=== PATIENT | female | born 1985 | race Caucasian/White ===

== ENCOUNTER 2017-05-31 12:36 | Inpatient (IN) | payer BC, OTHER ==
[~2017-05-31] VITALS: Ht 162.6 cm; Wt 145.5 kg
[~2017-05-31 12:36] MED LIST: IBUP-1222 PO; IRON PO; OXYC-302 PO; PREN1TAB60 PO
[2017-05-31] MEDS ORDERED: OXYTOCIN 30U/ 0.9% NaCL 500ML 500 ML IV ONE (20:36)
[2017-05-31] MEDS: D5%-LACTATED RINGERS 1,000 ML IV SCH (20:36)
[2017-05-31] MEDS: LACTATED RINGERS 1,000 ML IV SCH (20:40)
[2017-05-31] MEDS ORDERED: NEWBORN KIT ONE (20:57)
[2017-05-31] MEDS ORDERED: MISOPROSTOL 25 MCG TABLET ONE (20:57)
[2017-05-31] MEDS ORDERED: LIDOCAINE 1%, 20ML ONE (20:57)
[2017-05-31] MEDS ORDERED: OXYTOCIN 30U/ 0.9% NaCL 500ML 500 ML ONE (20:57)
[2017-05-31] MEDS ORDERED: MISOPROSTOL 200 MCG TABLET ONE (20:57)
[2017-05-31] MEDS ORDERED: FENTANYL PF 100 MCG/2ML IVPush PRN (21:00)
[2017-05-31] MEDS ORDERED: TERBUTALINE 1 MG/ML, 1ML IVPush PRN (21:00)
[2017-05-31] MEDS ORDERED: ALUMINUM/MAG/SIMETHICONE 30 ML UDC PO PRN (21:00)
[2017-05-31] MEDS ORDERED: SODIUM CITRATE/CITRIC ACID 30 ML UDC PO PRN (21:00)
[2017-05-31] MEDS ORDERED: MISOPROSTOL 25 MCG TABLET VG PRN (21:00)
[2017-05-31] MEDS ORDERED: FENTANYL PF 100 MCG/2ML IV PRN (21:00)
[2017-05-31] MEDS ORDERED: METOCLOPRAMIDE 5 MG/ML, 2ML IVPush PRN (21:00)
[2017-05-31] MEDS ORDERED: ONDANSETRON 2MG/ML, 2ML IVPush PRN (21:00)
[2017-05-31] MEDS ORDERED: CALCIUM CARBONATE 500 MG TAB.CHEW PO PRN (21:00)
[2017-05-31 21:03] LABS: BASOPHILS # (AUTO) 0.03 x10^3/uL (0-0.1); BASOPHILS % (AUTO) 0 % (0-1); EOSINOPHILS # (AUTO) 0.09 x10^3/uL (0-0.4); EOSINOPHILS % (AUTO) 1 % (1-7); LYMPHOCYTES # (AUTO) 0.88 x10^3/uL (1-3.4); LYMPHOCYTES % (AUTO) 10 % (22-44); MD NO; MEAN CORPUSCULAR HEMOGLOBIN 28.9 pg (27.0-34.8); MEAN CORPUSCULAR HGB CONC 33.5 g/dL (32.4-35.8); MEAN CORPUSCULAR VOLUME 86.3 fL (80-100); MEAN PLATELET VOLUME 8.2 fL (7.4-10.4); MONOCYTES % (AUTO) 6 % (2-9); NEUTROPHILS # (AUTO) 7.44 x10^3/uL (1.8-6.8); NEUTROPHILS % (AUTO) 83 % (42-75); PLATELET COUNT 261 x10^3/uL (130-400); RED BLOOD COUNT 4.19 x10^6/uL (3.82-5.3); RED CELL DISTRIBUTION WIDTH 15.6 % (9.6-15.2)
[2017-05-31 21:23] VITALS: BP 123/70
[2017-06-01] MEDS ORDERED: MISOPROSTOL 25 MCG TABLET ONE (01:00)
[2017-06-01] MEDS ORDERED: OXYTOCIN 30U/ 0.9% NaCL 500ML 500 ML IV PRN (01:09)
[2017-06-01] MEDS ORDERED: DIPHENHYDRAMINE 25 MG CAPSULE PO PRN (01:30)
[2017-06-01] MEDS: D5%-LACTATED RINGERS 1,000 ML IV SCH ×2 (04:36→12:36)
[2017-06-01] MEDS: LACTATED RINGERS 1,000 ML IV SCH ×2 (04:36→06:13)
[2017-06-01] MEDS ORDERED: LACTATED RINGERS 1,000 ML IV SCH (07:18)
[2017-06-01] MEDS ORDERED: FENTANYL/BUPIV./NS/PF 250 ML EPIDCONT SCH (07:18)
[2017-06-01] MEDS ORDERED: BUPIVACAINE/PF 0.25% ONE (07:20)
[2017-06-01] MEDS ORDERED: BUPIVACAINE 0.25% ONE (07:20)
[2017-06-01] MEDS ORDERED: FENTANYL/BUPIV./NS/PF 250 ML EPIDCONT ONE ×2 (07:20)
[2017-06-01] MEDS ORDERED: LACTATED RINGERS 1,000 ML IVBOLUS PRN (07:30)
[2017-06-01] MEDS ORDERED: NALOXONE 0.4 MG/ML, 1ML IVPush PRN (07:30)
[2017-06-01] MEDS ORDERED: EPHEDRINE 50 MG/ML, 1ML IVPush PRN (07:30)
[2017-06-01] MEDS ORDERED: LIDOCAINE 1%, 20ML ONE (12:01)
[2017-06-01] MEDS ORDERED: MISOPROSTOL 200 MCG TABLET ONE (12:01)
[2017-06-01] MEDS: OXYTOCIN 30U/ 0.9% NaCL 500ML 500 ML IV SCH ×2 (13:07→23:07)
[2017-06-01] MEDS ORDERED: RHOGAM FROM BLOOD BANK 1 NOTE EA IM/IV ONE (13:30)
[2017-06-01] MEDS ORDERED: OXYcodone IR 5MG TABLET PO PRN (13:30)
[2017-06-01] MEDS ORDERED: MAGNESIUM HYDROXIDE 8%, 30ML UDC PO PRN (13:30)
[2017-06-01] MEDS ORDERED: DOCUSATE 100 MG CAPSULE PO PRN (13:30)
[2017-06-01] MEDS ORDERED: OXYcodone/APAP 5/325MG TABLET PO PRN (13:30)
[2017-06-01] MEDS ORDERED: MISOPROSTOL 200 MCG TABLET PR PRN (13:30)
[2017-06-01] MEDS ORDERED: DIPH,PERTUSS(ACELL),TET VAC/PF NC IM-VACC PRN (13:30)
[2017-06-01] MEDS ORDERED: CALCIUM CARBONATE 500 MG TAB.CHEW PO PRN (13:30)
[2017-06-01 16:20] VITALS: BP 134/75
[2017-06-01] MEDS: IBUPROFEN 600 MG TABLET PO PRN ×2 (18:13→23:56)
[2017-06-01 19:30] VITALS: BP 126/79
[2017-06-01] MEDS ORDERED: MEASLES,MUMPS&RUBELLA VACC/PF 0.5 ML SQ-VACC ONE (21:00)
[2017-06-01 21:02] LABS: BASOPHILS # (AUTO) 0.03 x10^3/uL (0-0.1); BASOPHILS % (AUTO) 0 % (0-1); EOSINOPHILS # (AUTO) 0.05 x10^3/uL (0-0.4); EOSINOPHILS % (AUTO) 1 % (1-7); LYMPHOCYTES # (AUTO) 1.05 x10^3/uL (1-3.4); LYMPHOCYTES % (AUTO) 11 % (22-44); MD NO; MEAN CORPUSCULAR HEMOGLOBIN 28.9 pg (27.0-34.8); MEAN CORPUSCULAR HGB CONC 33.3 g/dL (32.4-35.8); MEAN CORPUSCULAR VOLUME 86.8 fL (80-100); MEAN PLATELET VOLUME 8.6 fL (7.4-10.4); MONOCYTES # (AUTO) 0.62 x10^3/uL (0.2-0.8); MONOCYTES % (AUTO) 6 % (2-9); NEUTROPHILS # (AUTO) 7.88 x10^3/uL (1.8-6.8); NEUTROPHILS % (AUTO) 82 % (42-75); PLATELET COUNT 216 x10^3/uL (130-400); RED BLOOD COUNT 3.91 x10^6/uL (3.82-5.3); RED CELL DISTRIBUTION WIDTH 15.8 % (9.6-15.2)
[2017-06-02 00:13] VITALS: BP 121/78
[2017-06-02 04:30] VITALS: BP 138/80
[2017-06-02] MEDS: PRENATAL VIT/IRON/FA 1 EACH TABLET PO SCH (07:51)
[2017-06-02] MEDS: IBUPROFEN 600 MG TABLET PO PRN ×2 (07:51→19:23)
[2017-06-02 08:09] VITALS: BP 124/78
[2017-06-02] MEDS ORDERED: IBUP-1222 PO (08:26)
[2017-06-02] MEDS: OXYTOCIN 30U/ 0.9% NaCL 500ML 500 ML IV SCH ×2 (09:07→19:07)
[2017-06-02 19:20] VITALS: BP 124/67
[2017-06-03] MEDS: OXYTOCIN 30U/ 0.9% NaCL 500ML 500 ML IV SCH (05:07)
[2017-06-03] MEDS: PRENATAL VIT/IRON/FA 1 EACH TABLET PO SCH (07:29)
[2017-06-03 07:30] VITALS: BP 115/70
== END 2017-06-03 10:30 | disposition home or self-care (01) | DRG 775 ==
LOC: LDIP 20:26 → 2NW 06-01 15:15
PROVIDERS: ADMIT Obstetrics & Gynecology Gynecology; ATTEND Obstetrics & Gynecology Gynecology
PROC: 10E0XZZ Delivery of Products of Conception, External Approach (ICD-10-PCS; principal; 2017-06-01)
PROC: 3E033VJ Introduction of Other Hormone into Peripheral Vein, Percutaneous Approach (ICD-10-PCS; 2017-06-01)
PROC: 3E0R3BZ Introduction of Anesthetic Agent into Spinal Canal, Percutaneous Approach (ICD-10-PCS; 2017-06-01)
PROC: 00HU33Z Insertion of Infusion Device into Spinal Canal, Percutaneous Approach (ICD-10-PCS; 2017-06-01)
PROC: 30233S1 Transfusion of Nonautologous Globulin into Peripheral Vein, Percutaneous Approach (ICD-10-PCS; 2017-06-01)
DX: O48.0 Post-term pregnancy (principal); E03.9 Hypothyroidism, unspecified; O99.284 Endocrine, nutritional and metabolic diseases complicating childbirth; Z37.0 Single live birth; Z3A.40 40 weeks gestation of pregnancy; Z80.3 Family history of malignant neoplasm of breast
CPT/HCPCS: 36415; 85025; 85461; 86850; 86900; J2790; J3490; J2590; J3010; J7120